=== PATIENT | male | born 1980 | race Caucasian/White ===

== ENCOUNTER 2021-04-21 11:12 | Emergency (ER) | payer MEDICAID, SELFPAY ==
--- NOTE | ~2021-04-21 | CT_ITS ---
EXAMINATION: CT ABDOMEN AND PELVIS WITHOUT CONTRAST CLINICAL INFORMATION: Right groin pain. Rule out hernia. COMPARISON: Previous CT of the pelvis April 2014 TECHNIQUE: Multidetector volumetric imaging was performed from the superior aspect of the liver through the pubic symphysis. Sagittal and coronal reformatted images were obtained on the technologist's workstation. This CT examination was performed using dose optimization techniques as appropriate, variously including the following: *Automated exposure control *Adjustment of mA and/or kV according to patient size (this includes techniques or standardized protocols for targeted exams where dose is matched to indication/reason for exam; i.e. extremities or head) *Use of iterative reconstruction technique DLP: 1077 mGy-cm FINDINGS: LUNG BASES: There is linear scarring or subsegmental atelectasis in the left lower lobe. This is new from 2014 exam. LIVER, GALLBLADDER, AND BILIARY TREE: The liver is normal in size, shape, and attenuation. No focal hepatic lesion or biliary ductal dilatation is present. The gallbladder is unremarkable with no evidence of radiopaque gallstones, gallbladder wall thickening, or obvious pericholecystic inflammatory changes. PANCREAS: Unremarkable. SPLEEN: Unremarkable. ADRENAL GLANDS: Unremarkable. KIDNEYS AND URETERS: The kidneys are normal in size, shape, and attenuation. No hydronephrosis, hydroureter, or calculi seen. No perinephric stranding. BLADDER: Unremarkable. GASTROINTESTINAL TRACT: The small and large bowel are unremarkable. The appendix is is not identified with certainty. There is no inflammatory changes seen in the right lower quadrant. Stomach is unremarkable. ABDOMINAL WALL: No significant hernia is appreciated. LYMPH NODES: There are small, small bowel mesentery and retroperitoneal lymph nodes that appear unchanged from 2014. No enlarged lymph nodes are seen. There is no ascites. VASCULAR: Unremarkable. PELVIC VISCERA: Unremarkable. OSSEOUS STRUCTURES: There are degenerative changes of the spine. CT/CT abdomen pelvis wo con IMPRESSION: No hernia seen.
--- NOTE | ~2021-04-21 | US_ITS ---
EXAMINATION: US SCROTUM CLINICAL INFORMATION: Testicular pain.. COMPARISON: None TECHNIQUE: A sonogram of the scrotum was performed assessing ayala-scale appearance and color Doppler flow. Spectral Doppler analysis of the arterial and venous flow were performed in the testes bilaterally. FINDINGS: RIGHT: Right testicle measures 4.3 x 2.6 x 2.8 cm, volume 16.3 mL. No focal testicular parenchymal lesions are visualized. Spectral Doppler analysis of the arterial and venous flow is normal in the right testis. Right epididymal head is normal in size. No right hydrocele or varicocele is seen. Right epididymal Doppler flow is normal. LEFT: Left testicle measures 4.3 x 2.7 x 2.6 cm, volume 15.7 mL. No focal testicular parenchymal lesions are visualized. Spectral Doppler analysis of the arterial and venous flow is normal in the left testis. Left epididymal head is normal in size. Incidental spermatocele measuring 8 mm within the epididymal head No left hydrocele or varicocele is seen. Left epididymal Doppler flow is normal. There is no evidence of any hernia on either side. US/US scrotum doppler IMPRESSION: No evidence of intratesticular lesion or hernia. No active torsion.
--- NOTE | ~2021-04-21 | US_ITS ---
EXAMINATION: US SCROTUM CLINICAL INFORMATION: Testicular pain.. COMPARISON: None TECHNIQUE: A sonogram of the scrotum was performed assessing ayala-scale appearance and color Doppler flow. Spectral Doppler analysis of the arterial and venous flow were performed in the testes bilaterally. FINDINGS: RIGHT: Right testicle measures 4.3 x 2.6 x 2.8 cm, volume 16.3 mL. No focal testicular parenchymal lesions are visualized. Spectral Doppler analysis of the arterial and venous flow is normal in the right testis. Right epididymal head is normal in size. No right hydrocele or varicocele is seen. Right epididymal Doppler flow is normal. LEFT: Left testicle measures 4.3 x 2.7 x 2.6 cm, volume 15.7 mL. No focal testicular parenchymal lesions are visualized. Spectral Doppler analysis of the arterial and venous flow is normal in the left testis. Left epididymal head is normal in size. Incidental spermatocele measuring 8 mm within the epididymal head No left hydrocele or varicocele is seen. Left epididymal Doppler flow is normal. There is no evidence of any hernia on either side. US/US scrotum IMPRESSION: No evidence of intratesticular lesion or hernia. No active torsion.
[2021-04-21 12:24] VITALS: BP 179/99; PULSE 82; RESP 18; TEMP 36.8; O2SAT 98; BMI 36.6
[2021-04-21 13:18] LABS: MANUAL DIFF FLAG NO
[2021-04-21 13:22] LABS: Basophils Percent Auto 0.5 % (0-2); Eosinophils Absolute Auto 0.1 X10*3/uL (0.0-0.4); Eosinophils Percent Auto 1.1 % (0-4); Hematocrit 45.8 % (42-52); Hemoglobin 15.6 g/dl (14.0-18.0); Imm Gran Abs Auto 0.02 X10*3/uL (0.00-0.03); Imm Gran Pct Auto 0.2 % (0.0-0.4); Lymphocytes Absolute Auto 1.9 X10*3/uL (1.2-4.9); Lymphocytes Percent Auto 22.9 % (20-40); Mean Corpuscular HGB Conc 34.1 g/dl (31.0-36.0); Mean Corpuscular Hemoglobin 33.3 pg (27.0-33.0); Mean Corpuscular Volume 97.7 fL (80-98); Mean Platelet Volume 9.7 fL (9.4-12.4); Monocytes Absolute Auto 0.8 X10*3/uL (0.1-1.2); Monocytes Percent Auto 10.1 % (2-11); Neutrophils Absolute Auto 5.4 X10*3/uL (2.0-8.3); Neutrophils Percent Auto 65.2 % (45-73); Platelet Count 293 X10*3/uL (160-400); Red Blood Count 4.69 X10*6/uL (4.60-5.80); Red Cell Distribution Width 12.6 % (11.0-16.0); White Blood Count 8.2 X10*3/uL (4.8-10.8)
[2021-04-21 13:51] LABS: Anion Gap 14 (12-20); Blood Urea Nitrogen 15 mg/dL (9-16); Calcium 9.8 mg/dL (8.4-10.2); Carbon Dioxide 25 mmol/L (22-29); Chloride 101 mmol/L (96-108); Creatinine Clr Calc Pharmacy 135.4; Estimated Glomerular Filt Rate > 60; Glucose Random 124 mg/dL (60-115); Potassium 4.7 mmol/L (3.3-5.1); Sodium 135 mmol/L (135-145)
--- NOTE | 2021-04-21 16:05 | ED.GENADULT ---
HPI - General Adult General Chief complaint: General Medical Stated complaint: groin pain Time Seen by Provider: 04/21/21 15:47 Source: patient Mode of arrival: ambulatory Limitations: no limitations History of Present Illness HPI narrative: 40-year-old male who presents emergency department for evaluation right groin or right testicular pain. The patient states that he has been working for a company for approximately 3-4 months. He states that he needs to step into a truck and the 1st step is slightly above his knee high and he has to step up high to get into the truck. He states for the past 1 1/2 months he has been having right groin pain which is gotten progressively worse. He states for the past 3 weeks the pain is a constant pain. He points to his right groin increase when asked to localize the pain. He states that the pain is a constant,pulling like sensation which is moderate to severe in intensity. The pain does radiate into his right groin. He denies any frequency, urgency, dysuria or penile discharge. He states that he has a daily bowel movement. He denies any nausea or vomiting. Related Data Previous Rx's Medication Instructions Recorded oxycodone 5 mg PO Q4H PRN #14 tab 04/21/21 Allergies Allergy/AdvReac Type Severity Reaction Status Date / Time levofloxacin [From LEVAQUIN] Allergy Intermediate KIDNEY Verified 04/21/21 12:24 FAILURE Review of Systems Review of Systems: Yes all other systems are reviewed and are negative COUNTS INCLUDE 234 BEDS AT THE [facility] Past Medical History COUNTS INCLUDE 234 BEDS AT THE [facility] Narrative: Social history: The patient states that he does smoke cigarettes but quit smoking 10 days prior. Patient drinks a 6 pack of beer per day. The patient smokes marijuana daily, multiple times a day. Medical History HTN (hypertension) Spinal stenosis Social History Social History Advance Directives: No Advance Directives Information Provided: No Physical Exam Vital Signs: Vital Signs: Last Vital Signs Temp 98.6 F 04/21/21 17:22 Pulse 76 04/21/21 17:22 Resp 20 04/21/21 17:22 BP 153/95 H 04/21/21 17:22 Pulse Ox 98 04/21/21 17:22 Body Mass Index 36.6 Const: General: cooperative and healthy appearing Nutritional Appearance: obese Orientation/consciousness: oriented to person and oriented to place Limitations: no limitations HENMT: Head: Yes normal to inspection, Yes normocephalic and Yes atraumatic Ears: external ears normal General nose exam: Normal external nose present Face and sinus: Yes normal facial exam Mouth: Normal oral and palatal mucosa present Throat: Yes posterior oropharynx normal Eyes: Periorbital: periorbital findings normal Eyelids: Yes eyelids normal Conjunctivae: conjunctivae normal Sclerae: sclerae normal Corneas: corneas normal Pupils: Equal, round and reactive pupils present Direct Ophthalmoscopy: normal light reflex Neck: Neck: Yes full ROM, Yes no lymphadenopathy, Yes no meningeal signs, Yes trachea midline and Yes supple Chest: Chest palpation & inspection: normal inspection of the chest and normal palpation of entire chest wall Resp: Effort & Inspection: normal respiratory effort and able to speak in complete sentences Auscultation: clear to auscultation bilaterally Cardio: Rate: regular rate Rhythm: regular rhythm Heart sounds: S1 normal heart sound present, S2 normal heart sound present and no murmurs GI: Inspection: Yes normal to inspection Palpation (GI): Soft to palpation, nontender, no guarding, not rigid and No hepatosplenomegaly present : General: Yes no CVA tenderness Male General Exam: Yes normal external exam Penis: normal penis Meatus: meatus normal Scrotum: scrotum normal, no inguinal hernias, no masses and no scrotal swelling Testes: Testes normal Back/Spine/Pelvis: Back: no CVA tenderness Cervical Spine: normal cervical lordosis Thoracic/Lumbar Spine: thoracic and lumbar spine normal to inspection Skin: Lesions: no lesions Rashes: no rashes Wounds: no wounds Neuro: General: oriented to person, oriented to place and no meningeal signs Cranial nerves: Yes CN's II-XII intact bilaterally and Yes Equal, round and reactive pupils present Cognition (Neuro): normal cognition Motor exam (neuro): 5/5 motor strength present throughout Extrem: General: Yes normal to inspection and Yes full ROM Psych: Appearance: well kempt Mental Status: mental status grossly normal Speech and movement: Normal speech and movement present Affect: normal affect Attitude: cooperative Thought process: Normal thought process present Thought content: Normal thought content present Course Course Course Narrative: 40-year-old male who presents emergency department for evaluation of left groin pain times 1-1/2 months course does last 3 weeks. The patient reports the pain to having to step high onto a truck step. The pain has become constant and severe, he had no nausea, vomiting, urinary symptoms or changes bowel movements. The pain does radiate to his right testicle. Physical examination revealed no obvious hernia or testicular tenderness. Laboratory evaluation revealed and elevated glucose of 155 otherwise was unremarkable. I did order a scrotal and duplex ultrasound of the patient's scrotum to rule out torsion or testicular causes for his pain. I also ordered a CT scan of his abdomen pelvis without IV contrast to evaluate him for possible hernia. At the end of my shift, these tests are pending in the patient's care was turned over to my colleague, . 1730 : CT scan of the abdomen pelvis revealed no obvious hernia, Doppler ultrasound and scrotal ultrasound revealed no significant abnormality. These findings are reassuring in the patient's pain is most likely secondary to a musculoskeletal injury to the groin muscles. Given the patient's alcohol use, I do not think that he can take Tylenol or ibuprofen for his pain therefore was prescribed oxycodone 5 mg every 4-6 hours as needed for pain dispense 14 tablets. He is given a note not return to work for 1 week. The patient was given verbal and printed instructions prior to discharge. The patient was advised to follow-up with their PCP in 2 days and to return to the emergency department if their symptoms get worse or if they develop any new symptoms that are concerning to them Medical Decision Making Lab Data Result diagrams: 04/21/21 13:12 04/21/21 13:12 Labs: Lab Results 04/21/21 04/21/21 Range/Units 13:12 13:12 WBC 8.2 (4.8-10.8) X10*3/uL RBC 4.69 (4.60-5.80) X10*6/uL Hgb 15.6 (14.0-18.0) g/dl Hct 45.8 (42-52) % MCV 97.7 (80-98) fL MCH 33.3 H (27.0-33.0) pg MCHC 34.1 (31.0-36.0) g/dl RDW 12.6 (11.0-16.0) % Plt Count 293 (160-400) X10*3/uL MPV 9.7 (9.4-12.4) fL Immature Gran % (Auto) 0.2 (0.0-0.4) % Neut % (Auto) 65.2 (45-73) % Lymph % (Auto) 22.9 (20-40) % Clinch % (Auto) 10.1 (2-11) % Eos % (Auto) 1.1 (0-4) % Baso % (Auto) 0.5 (0-2) % Lymph # (Auto) 1.9 (1.2-4.9) X10*3/uL Clinch # (Auto) 0.8 (0.1-1.2) X10*3/uL Eos # (Auto) 0.1 (0.0-0.4) X10*3/uL Baso # (Auto) 0.0 (0.0-0.2) X10*3/uL Abs Immat Gran (auto) 0.02 (0.00-0.03) X10*3/uL Absolute Neuts (auto) 5.4 (2.0-8.3) X10*3/uL Absolute Nucleated RBC 0.000 (0.0-0.012) X10*3/uL Nucleated RBC % (auto) 0.0 (0.0-0.2) /100WBC Sodium 135 (135-145) mmol/L Potassium 4.7 (3.3-5.1) mmol/L Chloride 101 (96-108) mmol/L Carbon Dioxide 25 (22-29) mmol/L Anion Gap 14 (12-20) BUN 15 (9-16) mg/dL Creatinine 0.96 (0.5-1.4) mg/dL Estim Creat Clear Calc 135.4 Estimated GFR > 60 Random Glucose 124 H (60-115) mg/dL Calcium 9.8 (8.4-10.2) mg/dL Discharge Plan Discharge Clinical Impression: Right groin pain Patient Disposition: Home, Self-Care Instructions: Groin Pain (ED) Additional Instructions: The CT scan of your abdomen pelvis without IV contrast and the duplex ultrasound of your scrotum and testicles did not reveal a clear cause for your pain. This is reassuring and suggests that you do not have a hernia or testicular problem as the cause of your pain. Your pain is most likely caused by muscle injury to the groin area. Take oxycodone 5 mg pills, 1 pill every 4-6 hours as needed for pain. This is a narcotic medication and can be addicting. If your concerned about addiction do not get this prescription filled or you can ask the pharmacist for less pills than prescribed. Apply ice for 15 minutes 4 to 6 times a day to the right groin area where your having the pain. After you apply ice then apply a heating pad on low for 10-15 minutes 4 to 6 times a day. Follow-up with your doctor in 2 days. Please return to the emergency department if your symptoms get worse or if you develop any symptoms that are concerning to you. Prescriptions: New oxycodone 5 mg tablet 5 mg PO Q4H PRN (Reason: pain) Qty: 14 RF: 0
[2021-04-21 17:22] VITALS: BP 153/95; PULSE 76; RESP 20; TEMP 37; O2SAT 98
== END 2021-04-21 18:11 | disposition home or self-care (01) ==
PROVIDERS: Emergency Provider Emergency Medicine Emergency Medical Services; PCP Internal Medicine
DX: R10.31 Right lower quadrant pain (principal); R73.9 Hyperglycemia, unspecified; I10 Essential (primary) hypertension
CPT/HCPCS: 36415; 74176; 76870; 80048; 85025; 93975; 99283; 99284

== ENCOUNTER 2021-05-17 15:29 | Emergency (ER) | payer MEDICAID, SELFPAY ==
[2021-05-17 15:53] VITALS: BP 171/98; PULSE 93; RESP 18; TEMP 36.9; O2SAT 95; BMI 37.3
--- NOTE | 2021-05-17 17:08 | ED.MALEGU ---
HPI - Male Genitourinary General Chief complaint: Urogenital-Male Stated complaint: jennifer pain Time Seen by Provider: 05/17/21 16:43 Source: patient Mode of arrival: ambulatory Limitations: no limitations History of Present Illness HPI Narrative: patient has a groin pull, feels a clamp on his right testicle. Patient also has known back problems, has had difficulty with his right leg. MD Complaint: testicle pain Onset (ago): week(s) Duration: intermittent Severity: mild Quality: sharp Associated symptoms: Reports other (right leg pain) Related Data Previous Rx's Medication Instructions Recorded oxycodone 5 mg PO Q4H PRN #14 tab 04/21/21 cyclobenzaprine 10 mg PO TID #10 tab 05/17/21 gabapentin 100 mg PO TID #20 cap 05/17/21 Allergies Allergy/AdvReac Type Severity Reaction Status Date / Time levofloxacin [From LEVAQUIN] Allergy Intermediate KIDNEY Verified 04/21/21 12:24 FAILURE Review of Systems Constitutional: Constitutional: Reports no additional constitutional complaints Eyes: Eyes: Reports no additional eye complaints ENT: Denies dizziness Cardiovascular: Cardiovascular: Reports no additional cardiovascular complaints Respiratory: Respiratory: Reports as per HPI Gastrointestinal: Gastrointestinal: Reports no additional gastrointestinal complaints Musculoskeletal: Musculoskeletal: Reports no additional musculoskeletal complaints Integumentary/Breasts: Skin/Breast: Denies rash Neurologic: Reports system reviewed and no additional complaints, except as documented, Denies dizziness and Denies Sensory deficit (Neuro) Psychiatric: Psychiatric: Denies anxiety PMFSH Past Medical History Medical History HTN (hypertension) Spinal stenosis Social History Social History Advance Directives: No Advance Directives Information Provided: No Physical Exam Vital Signs: Vital Signs: Last Vital Signs Temp 98.5 F 05/17/21 15:53 Pulse 93 05/17/21 15:53 Resp 18 05/17/21 15:53 BP 171/98 H 05/17/21 15:53 Pulse Ox 95 05/17/21 15:53 Body Mass Index 37.3 Const: Other: 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 Nutritional Appearance: overweight Orientation/consciousness: oriented to person and patient oriented x3 Limitations: no limitations HENMT: Head: Yes normal to inspection Ears: external ears normal General nose exam: Normal external nose present Mouth: Normal oral and palatal mucosa present and oropharynx normal Throat: Yes posterior oropharynx normal Eyes: General: appearance normal, both eyes and all related structures Neck: Other: supple Neck: Yes normal visual inspection Chest: Chest palpation & inspection: normal inspection of the chest Resp: Auscultation: clear to auscultation bilaterally Cardio: Jugular venous distension: no JVD Rate: regular rate Rhythm: regular rhythm Heart sounds: S1 normal heart sound present and S2 normal heart sound present GI: Inspection: Yes normal to inspection Palpation (GI): Soft to palpation, nontender and No hepatosplenomegaly present Auscultation: normal bowel sounds Back/Spine/Pelvis: Other: right SI joint tenderness and periformis tenderness on external rotation of hip Skin: General skin exam: no rashes or lesions noted Neuro: General: oriented to person and patient oriented x3 Cranial nerves: Yes CN's II-XII intact bilaterally Motor exam (neuro): 5/5 motor strength present throughout Sensory Exam: No Sensory deficit (Neuro) Extrem: General: Yes normal to inspection Psych: Appearance: grossly normal Course Reevaluation(s) Reevaluation #1: patient with extensive work up for hernia and testicular pain. Ultrasound of right and left testicle was normal, Ct of adomen and pelvis. In light of the negative work up and physical exam consistent with lumbar radiculopathy. Time: 17:21 Discharge Plan Discharge Clinical Impression: Chronic lumbar radiculopathy Patient Disposition: Home, Self-Care Instructions: Lumbar Radiculopathy (ED) Prescriptions: New cyclobenzaprine 10 mg tablet 10 mg PO TID Qty: 10 RF: 0 gabapentin 100 mg capsule 100 mg PO TID Qty: 20 RF: 0 No Action oxycodone 5 mg tablet 5 mg PO Q4H PRN (Reason: pain) Qty: 14 RF: 0 Referrals: Romeo Oneill MD [Primary Care Provider] - 5 days
== END 2021-05-17 17:29 | disposition home or self-care (01) ==
PROVIDERS: Emergency Provider Emergency Medicine; PCP Internal Medicine
DX: M54.16 Radiculopathy, lumbar region (principal); N50.811 Right testicular pain; I10 Essential (primary) hypertension
CPT/HCPCS: 99283

== ENCOUNTER 2021-06-12 16:37 | Outpatient (REF) | payer MEDICAID, SELFPAY ==
--- NOTE | ~2021-06-12 | MR_ITS ---
EXAMINATION: MR LUMBAR SPINE WITHOUT CONTRAST CLINICAL INFORMATION: Lumbar radiculopathy. COMPARISON: Lumbar spine MRI from 08/30/2018. TECHNIQUE: MRI of the lumbar spine was obtained using routine sequences without contrast. FINDINGS: Minimal degenerative retrolisthesis of T12 on L1, L1 on L2, L3 on L4, and L5-S1. Advanced degenerative disc disease from L1-L4. Moderate degenerative disc disease at all additional lumbar levels. Associated mixed Modic discogenic endplate changes including mild Modic type I discogenic edema at T12-L1. Mild marrow edema within the L5-S1 posterior elements consistent with degenerative stress reaction. No additional suspicious for edema. Mild spinal stenosis at T12-L1, L2-L3, and L3-L4. Otherwise, the vertebral body heights are maintained. The conus medullaris terminates at the level of T12-L1. The distal spinal cord is normal in appearance. No significant abnormalities of the paraspinal musculature. Limited evaluation of the intra-abdominal structures without significant abnormalities. The abdominal aorta is of normal contour and caliber. AXIAL SPINAL LEVELS: T12-L1: Moderate diffuse disc bulge. There is mild bilateral facet arthropathy. There is mild to moderate bilateral neural foraminal stenosis. There is stenosis of the right subarticular zone with no overt spinal canal stenosis centrally. L1-L2: Moderate diffuse disc bulge. There is moderate bilateral facet joint arthropathy. There is moderate left worse than right neural foraminal stenosis. There is stenosis of the right wrist in the subarticular zones with moderate spinal canal stenosis centrally. L2-L3: Moderate diffuse disc bulge. There is moderate bilateral facet joint arthropathy. There is moderate right worse than left neural foraminal stenosis. There is moderate spinal canal stenosis. L3-L4: Moderate diffuse disc bulge. There is moderate bilateral facet joint arthropathy. There is moderate bilateral neural foraminal stenosis. There is severe spinal canal stenosis. L4-L5: Moderate diffuse disc bulge. There is severe bilateral facet joint arthropathy. There is severe bilateral neural foraminal stenosis. There is severe spinal canal stenosis. L5-S1: Moderate diffuse disc bulge. There is moderate bilateral facet joint arthropathy. There is severe left and moderate right neural foraminal stenosis. There is stenosis of the subarticular zones with no overt spinal canal stenosis centrally. MR/MR lumbar spine wo con IMPRESSION: Moderate to advanced multilevel degenerative spondyloarthropathy of the lumbar spine as described in detail above. Most notably, there is severe spinal canal stenosis at L3-L4 and L4-L5. Moderate spinal canal stenosis at L1-L2 and L2-L3. Stenoses of the subarticular zones at T12-L1 and L5-S1. Moderate to severe neural foraminal stenoses at all levels from T12-S1. Overall, degenerative changes are similar to mildly progressed compared to 2018.
== END 2021-06-12 16:38 | disposition home or self-care (01) ==
LOC: HO.MRI 16:37
PROVIDERS: Visit Provider Registered Nurse
DX: M54.16 Radiculopathy, lumbar region (principal)
CPT/HCPCS: 72148

== ENCOUNTER → 2021-07-23 15:49 | Outpatient (BNVA) | payer MEDICAID, SELFPAY | PROVIDERS: PCP Registered Nurse; Visit Provider Anesthesiology | DX: M46.1 Sacroiliitis, not elsewhere classified (principal); M51.36 Other intervertebral disc degeneration, lumbar region; M47.16 Other spondylosis with myelopathy, lumbar region; M43.16 Spondylolisthesis, lumbar region; M48.061 Spinal stenosis, lumbar region without neurogenic claudication; G89.4 Chronic pain syndrome | CPT/HCPCS: 99202 ==

== ENCOUNTER 2021-08-23 11:51 | Emergency (ER) | payer MEDICAID, SELFPAY ==
--- NOTE | ~2021-08-23 | XR_ITS ---
EXAMINATION: XR THORACOLUMBAR SPINE CLINICAL INFORMATION: Trauma COMPARISON: Chest radiographs 09/05/2018 TECHNIQUE: Thoracic spine 5 views FINDINGS: Multilevel degenerative osteophytes and degenerative disc narrowing. No compression fracture. No malalignment. Partially imaged ribs do not demonstrate acute displaced fracture. XR/XR thoracic spine 2V IMPRESSION: No radiographic evidence of acute traumatic injury to the thoracic spine.
--- NOTE | ~2021-08-23 | XR_ITS ---
EXAMINATION: XR LUMBOSACRAL SPINE CLINICAL INFORMATION: Trauma COMPARISON: MRI 06/12/2021 TECHNIQUE: Three views of the lumbosacral spine. FINDINGS: Multilevel degenerative changes, similar to the MRI performed recently. No evidence of compression fracture or malalignment. XR/XR lumbar spine 2-3V IMPRESSION: No evidence of acute hepatic injury to the lumbar spine. Degenerative changes as seen on recently performed MRI.
[2021-08-23 12:00] VITALS: BP 168/100; PULSE 108; RESP 20; TEMP 36.7; O2SAT 96; BMI 38.0
[2021-08-23 13:44] VITALS: BP 170/87; PULSE 98; RESP 18; TEMP 36.6; O2SAT 99
--- NOTE | 2021-08-23 13:50 | ED.BACK ---
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 He states he was at a friend's house, it was dark, he tripped over a wall, fell and hit his back on to a tree. He states when he fell he heard a crack. He states he had to crawl to his house, confused unable to ambulate. Today he is using a cane for ambulation, he states is been helping him. He states he is having 10/10 pain, worse with ambulation, better at rest. He denies changes in urination, weakness, sensory/motor deficits, chest pain, shortness of breath, fevers, chills, nausea, vomiting. Patient is not an IV drug user. He has not had any previous back surgeries. He has had previous imaging of the lower back, including CTs, and MRIs. MD elicited complaint: back pain Pertinent past history: prior back pain Onset (ago): day(s) (1) Timing: constant Severity: severe Pain scale (0-10): 10 Similar Symptoms Previously: Yes Quality: sharp and spasming Location: lumbar spine and thoracic spine Radiation: left upper leg and right upper leg Exacerbating factors: movement and walking Relieving factors: none Context: fall Associated symptoms: denies other symptoms Work related injury: No Related Data Home Medications Medication Instructions Recorded Confirmed albuterol sulfate 90 mcg/actuation 2 puff INHALATION Q6H PRN 07/23/21 aerosol inhaler (Ventolin HFA) amlodipine 5 mg tablet 5 mg PO DAILY 07/23/21 multivitamin 1 tab PO DAILY 07/23/21 Previous Rx's Medication Instructions Recorded oxycodone 5 mg tablet 5 mg PO Q4H PRN #14 tab 04/21/21 cyclobenzaprine 10 mg tablet 10 mg PO TID #10 tab 05/17/21 gabapentin 100 mg capsule 100 mg PO TID #20 cap 05/17/21 cyclobenzaprine 10 mg tablet 10 mg PO Q8H #10 tab 08/23/21 lidocaine 5 % topical patch 1 patch TOPICAL DAILY #15 ea 08/23/21 (Lidoderm) naproxen 500 mg tablet 500 mg PO BID PRN #14 tab 08/23/21 Allergies Allergy/AdvReac Type Severity Reaction Status Date / Time levofloxacin [From LEVAQUIN] Allergy Intermediate KIDNEY Verified 07/23/21 16:01 FAILURE Review of Systems Neurologic: Denies Abnormal speech present [facility] Past Medical History Medical History (Updated 08/23/21 @ 15:14 by Nayeli Read NP) Chronic pain syndrome Disc degeneration, lumbar Disc degeneration, lumbar HTN (hypertension) Sacroiliitis Spinal stenosis Spinal stenosis of lumbar region without neurogenic claudication Spondylolisthesis, lumbar region Spondylosis, lumbar, with myelopathy Social History Social History Advance Directives: No Advance Directives Information Provided: No Physical Exam Vital Signs: Vital Signs: Last Vital Signs Temp 98 F 08/23/21 13:44 Pulse 98 08/23/21 13:44 Resp 17 08/23/21 15:40 BP 170/87 H 08/23/21 13:44 Pulse Ox 99 08/23/21 13:44 Body Mass Index 38.0 Const: General: cooperative, healthy appearing, comfortable and no acute distress Orientation/consciousness: patient oriented x3 Limitations: no limitations HENMT: Head: Yes normal to inspection Ears: hearing grossly normal bilaterally General nose exam: Normal external nose present Face and sinus: Yes normal facial exam Mouth: Normal oral and palatal mucosa present Throat: Yes posterior oropharynx normal Eyes: General: appearance normal, both eyes and all related structures Pupils: Equal, round and reactive pupils present Neck: Neck: Yes normal visual inspection Chest: Chest palpation & inspection: normal inspection of the chest Resp: Effort & Inspection: normal respiratory effort Auscultation: clear to auscultation bilaterally Cardio: Rate: regular rate Rhythm: regular rhythm Peripheral pulses: Peripheral pulses 2+ throughout GI: Inspection: Yes normal to inspection Palpation (GI): Soft to palpation and nontender Auscultation: normal bowel sounds Back/Spine/Pelvis: Other: Pain with range of motion, however full range of motion. No evident deformities, or signs of trauma. Mild paraspinous tenderness bilaterally overlying the thoracic, and lumbar area. Thoracic/Lumbar Spine: thoracic and lumbar spine normal to inspection Skin: General skin exam: no rashes or lesions noted Neuro: General: patient oriented x3, no focal motor deficits and normal sensation to monofilament Cranial nerves: Yes Equal, round and reactive pupils present Cognition (Neuro): normal cognition Speech: No Abnormal speech present Gait exam (Neuro): Normal gait present Motor exam (neuro): 5/5 motor strength present throughout Sensory Exam: Normal double simultaneous stimulation for sensation Extrem: General: Yes normal to inspection Course Reevaluation(s) Reevaluation #1: Patient was able to ambulate well with cane to Xray. X-ray of thoracic, lumbar spine shows no acute fracture, there are degenerative changes noted, as previously seen on MRI. But no acute findings. Patient's pain is likely secondary to trauma, and he is having thoracic, and lumbar muscle spasms. He can take anti-inflammatory medication to help with inflammation. He will also be sent home with a lighted derm patch, to apply to the area that hurts the most. I have reviewed his x-ray results with him, he understands the plan, he has no questions. He is safe for discharge home with PCP follow-up, and follow-up with pain management or a data entry specialist. Time: 15:10 MDM - Back Pain/Injury MDM Narrative Medical decision making narrative: 40-year-old male, with multiple back problems presents to the emergency department with 10 of 10 back pain status post trip and fall, and hitting his back against a tree yesterday night. He states when he fell, he heard a crack, so he got concerned and wanted to come in today to get evaluated. He states that he is having severe pain, and at times it radiates down to his legs above the knee. He has had an MRI in the past, which shows degenerative disc changes. He has been seen by a pain management in the past. Not an IV drug user. Denies fevers, chills, cp, sob, incontenence, weakness, sensory and motor deficits. From on physical examination there is full range of motion, however it is painful. There is also paraspinous tenderness in the thoracic, lumbar region. There is no overlying skin changes. Sensory and motor intact, neurovascularly intact. No focal neuro deficits. 2+ reflexes to bilateral patella. Negative straight leg raise bilaterally. No saddle paresthesia. Patient history and physical exam are not consistent with cauda equina. Sign at this time is to obtain plain films of the lumbar, and thoracic spine to rule out fractures. Medical Records Attestation: I reviewed the patient's medical records. Lab Data Attestation: I reviewed the patient's lab results. Imaging Data X-ray of thoracic, lumbar spine: Attestation: I personally reviewed and interpreted this imaging study as follows: Radiologist's impression: FINDINGS: Multilevel degenerative changes, similar to the MRI performed recently. No evidence of compression fracture or malalignment. XR/XR lumbar spine 2-3V IMPRESSION: No evidence of acute hepatic injury to the lumbar spine. Degenerative changes as seen on recently performed MRI. Discharge Plan Discharge Clinical Impression: Lumbar paraspinal muscle spasm, Spasm of thoracic back muscle Fall Qualifiers: Encounter type: initial encounter Qualified Code(s): W19.XXXA - Unspecified fall, initial encounter Patient Disposition: Home, Self-Care Instructions: Muscle Spasm (ED), Back Pain (ED), Heat Pack Application (ED), Warm Compress or Soak (ED) Additional Instructions: Follow-up with pain management, or data entry specialist. Today are x-ray showed no acute fractures. Take naproxen as needed for back pain. You can apply a Lidoderm patch to the area that hurts most. Return to the emergency department with new or worsening symptoms. Prescriptions: New cyclobenzaprine 10 mg tablet 10 mg PO Q8H Qty: 10 RF: 0 lidocaine [Lidoderm] 5 % adhesive patch,medicated 1 patch topical DAILY Qty: 15 RF: 0 naproxen 500 mg tablet 500 mg PO BID PRN (Reason: pain) Qty: 14 RF: 0 No Action cyclobenzaprine 10 mg tablet 10 mg PO TID Qty: 10 RF: 0 gabapentin 100 mg capsule 100 mg PO TID Qty: 20 RF: 0 oxycodone 5 mg tablet 5 mg PO Q4H PRN (Reason: pain) Qty: 14 RF: 0 Referrals: Romeo Oneill MD [Primary Care Provider] - 2 days Interventions: ED Discharge Assessment Last Done: 08/23/21 15:41 Discharge Date/Time: 08/23/21 15:42
[2021-08-23] MEDS: oxyCODONE HCl Immed Release 5 MG TABLET PO (14:32)
[2021-08-23 15:40] VITALS: RESP 17
== END 2021-08-23 15:42 | disposition home or self-care (01) ==
PROVIDERS: Emergency Provider Emergency Medicine; PCP Internal Medicine
DX: M54.50 Low back pain, unspecified (principal); M54.6 Pain in thoracic spine; M79.605 Pain in left leg; M79.604 Pain in right leg; Z79.899 Other long term (current) drug therapy
CPT/HCPCS: 72070; 72100; 99283; 99284